=== PATIENT | male | born 1980 | race Caucasian/White ===

== ENCOUNTER 2017-01-03 18:26 | Emergency (ER) | payer BC ==
[~2017-01-03] VITALS: Ht 180.3 cm; Wt 72.6 kg
[~2017-01-03 18:26] MED LIST: NO MEDICATIONS; VOLTAREN50 MG PO
== END 2017-01-03 19:06 | disposition home or self-care (01) ==
LOC: CED 18:26 → SED 18:26
DX: L02.415 Cutaneous abscess of right lower limb (principal); F17.210 Nicotine dependence, cigarettes, uncomplicated; Z88.5 Allergy status to narcotic agent; Z79.899 Other long term (current) drug therapy
CPT/HCPCS: 99282